=== PATIENT | female | born 1960 | race African-American/Black ===

== ENCOUNTER 2018-05-19 10:01 | Emergency (ER) | payer MEDICAID ==
[~2018-05-19] VITALS: Ht 175.3 cm; Wt 101.6 kg
[~2018-05-19 10:01] MED LIST: AMPICILLIN
[2018-05-19 10:40] LABS: CLARITY URINE CLEAR (CLEAR); COLOR URINE YELLOW (YELLOW); KETONES URINE NEGATIVE (NEGATIVE); LEUKOCYTE ESTERASE URINE TRACE (NEGATIVE); NITRITE URINE NEGATIVE (NEGATIVE); OCCULT BLOOD URINE 1+ (NEGATIVE); PROTEIN URINE NEGATIVE (NEGATIVE); UROBILINOGEN URINE 0.2 E.U./dL (0.2-1.0)
[2018-05-19] MEDS ORDERED: SODIUM CHLORIDE 0.9% 1,000 ML IV ONE (12:36)
[2018-05-19 13:29] LABS: BASOPHILS % 0.9 % (0.0-2.0); EOSINOPHILS % 0.6 % (0.0-5.0); HEMATOCRIT. 45.4 % (36.0-48.0); HEMOGLOBIN. 15.1 g/dL (12.0-16.0); LYMPHOCYTES % 21.9 % (20.0-50.0); MEAN CORPUSCULAR HEMOGLOBIN 29.2 pg (28.0-32.0); MEAN PLATELET VOLUME 9.9 fl (7.4-10.4); MONOCYTES % 3.2 % (2.0-8.0); NEUTROPHILS % 73.4 % (40.0-76.0); PLATELET 288 x1000/uL (130-400); RED BLOOD CELL COUNT 5.16 mill/uL (4.2-5.4); RED CELL DISTRIBUTION WIDTH 13.6 % (11.6-14.6)
[2018-05-19 13:31] LABS: CHLORIDE 103 mEq/L (98-107)
[2018-05-19 14:10] VITALS: BP 134/85
== END 2018-05-19 14:45 | disposition home or self-care (01) ==
LOC: ER 10:01
DX: R55 Syncope and collapse (principal); R42 Dizziness and giddiness; R53.1 Weakness; F17.210 Nicotine dependence, cigarettes, uncomplicated; F19.10 Other psychoactive substance abuse, uncomplicated
CPT/HCPCS: 36415; 80053; 81003; 85025; 93005; 96360; 96361; 99285; J7030; Z7610

== ENCOUNTER 2018-05-22 21:10 | Emergency (ER) | payer MEDICAID ==
[~2018-05-22] VITALS: Ht 177.8 cm; Wt 104.0 kg
[2018-05-23] VITALS: BP 130/75
== END 2018-05-23 00:01 | disposition home or self-care (01) ==
LOC: ER 21:57
DX: R53.1 Weakness (principal); F17.210 Nicotine dependence, cigarettes, uncomplicated; F41.0 Panic disorder [episodic paroxysmal anxiety]; F11.10 Opioid abuse, uncomplicated; Z71.6 Tobacco abuse counseling
CPT/HCPCS: 82962; 93005; 99283; 99406

== ENCOUNTER 2018-05-23 09:54 | Emergency (ER) | payer MEDICAID ==
[~2018-05-23] VITALS: Ht 167.6 cm; Wt 107.0 kg
[2018-05-23 11:00] LABS: CLARITY URINE CLEAR (CLEAR); COLOR URINE YELLOW (YELLOW); KETONES URINE NEGATIVE (NEGATIVE); LEUKOCYTE ESTERASE URINE NEGATIVE (NEGATIVE); NITRITE URINE NEGATIVE (NEGATIVE); OCCULT BLOOD URINE NEGATIVE (NEGATIVE); PH URINE 7.5 (4.5-8.0); PROTEIN URINE NEGATIVE (NEGATIVE); SPECIFIC GRAVITY URINE 1.006 (1.005-1.030); UROBILINOGEN URINE 0.2 E.U./dL (0.2-1.0)
[2018-05-23] MEDS ORDERED: SODIUM CHLORIDE 0.9% 1,000 ML IV ONE (11:14)
[2018-05-23 12:15] LABS: BASOPHILS % 0.5 % (0.0-2.0); EOSINOPHILS % 0.8 % (0.0-5.0); HEMATOCRIT. 42.7 % (36.0-48.0); HEMOGLOBIN. 14.1 g/dL (12.0-16.0); LYMPHOCYTES % 18.7 % (20.0-50.0); MEAN CORPUSCULAR HEMOGLOBIN 29.1 pg (28.0-32.0); MEAN CORPUSCULAR VOLUME 88.3 fL (81.0-99.0); MEAN PLATELET VOLUME 9.6 fl (7.4-10.4); MONOCYTES % 4.1 % (2.0-8.0); NEUTROPHILS % 75.9 % (40.0-76.0); PLATELET 282 x1000/uL (130-400); RED BLOOD CELL COUNT 4.84 mill/uL (4.2-5.4); RED CELL DISTRIBUTION WIDTH 13.5 % (11.6-14.6)
[2018-05-23 12:20] LABS: CHLORIDE 100 mEq/L (98-107)
[2018-05-23 12:27] LABS: D-DIMER < 0.19 mg/L FEU (<0.50); PARTIAL THROMBOPLASTIN TIME 26.1 sec (23.4-31.0); PROTHROMBIN TIME 10.3 sec (9.4-11.6)
[2018-05-23 12:28] LABS: ETHANOL BLOOD < 10 mg/dL
[2018-05-23 12:32] LABS: CREATINE KINASE 109 IU/L (26-192)
[2018-05-23 16:50] VITALS: BP 132/74
== END 2018-05-23 17:10 | disposition home or self-care (01) ==
LOC: ER 10:16
DX: R42 Dizziness and giddiness (principal); E86.0 Dehydration; F17.200 Nicotine dependence, unspecified, uncomplicated; F11.10 Opioid abuse, uncomplicated; R03.0 Elevated blood-pressure reading, without diagnosis of hypertension
CPT/HCPCS: 36415; 71045; 80053; 81003; 81025; 82550; 83690; 83880; 84443; 84484; 85025; 85379; 85610; 85730; 93005; 96360; 99285; G0482; J7030; Z7610

== ENCOUNTER 2018-05-28 14:30 | Emergency (ER) | payer MEDICAID ==
[~2018-05-28] VITALS: Ht 162.6 cm; Wt 114.0 kg
[2018-05-28 15:34] LABS: CLARITY URINE CLEAR (CLEAR); COLOR URINE YELLOW (YELLOW); KETONES URINE NEGATIVE (NEGATIVE); LEUKOCYTE ESTERASE URINE 1+ (NEGATIVE); NITRITE URINE NEGATIVE (NEGATIVE); OCCULT BLOOD URINE NEGATIVE (NEGATIVE); PH URINE 6.5 (4.5-8.0); PROTEIN URINE NEGATIVE (NEGATIVE); SPECIFIC GRAVITY URINE 1.016 (1.005-1.030); UROBILINOGEN URINE 0.2 E.U./dL (0.2-1.0)
[2018-05-28] MEDS ORDERED: NITROFURANTOIN 100MG M/M CAPSULE PO ONE (19:30)
[2018-05-28 19:40] VITALS: BP 155/78
== END 2018-05-28 19:42 | disposition home or self-care (01) ==
LOC: ER 14:30
DX: N30.00 Acute cystitis without hematuria (principal); R42 Dizziness and giddiness
CPT/HCPCS: 81003; 99283

== ENCOUNTER 2019-04-21 06:59 | Emergency (ER) | payer MEDICAID ==
[~2019-04-21] VITALS: Ht 175.3 cm; Wt 107.0 kg
[2019-04-21 07:37] LABS: BASOPHILS % 0.2 % (0.0-2.0); EOSINOPHILS % 4.4 % (0.0-5.0); HEMATOCRIT. 40.7 % (36.0-48.0); HEMOGLOBIN. 13.4 g/dL (12.0-16.0); LYMPHOCYTES % 33.8 % (20.0-50.0); MEAN CORPUSCULAR HEMOGLOBIN 29.1 pg (28.0-32.0); MEAN CORPUSCULAR VOLUME 88.4 fL (81.0-99.0); MEAN PLATELET VOLUME 9.3 fl (7.4-10.4); MONOCYTES % 6.7 % (2.0-8.0); NEUTROPHILS % 54.9 % (40.0-76.0); PLATELET 257 x1000/uL (130-400); RED CELL DISTRIBUTION WIDTH 14.2 % (11.6-14.6)
[2019-04-21 07:42] LABS: CHLORIDE 102 mEq/L (98-107)
[2019-04-21 09:22] VITALS: BP 109/65
== END 2019-04-21 09:25 | disposition home or self-care (01) ==
LOC: ER 07:57
DX: R07.89 Other chest pain (principal); R00.2 Palpitations; F17.200 Nicotine dependence, unspecified, uncomplicated; Z98.890 Other specified postprocedural states
CPT/HCPCS: 36415; 71045; 84484; 93005; 99284

== ENCOUNTER 2019-05-11 06:21 | Emergency (ER) | payer MEDICAID ==
[~2019-05-11] VITALS: Ht 177.8 cm; Wt 80.0 kg
[2019-05-11] MEDS ORDERED: BACITRACIN ZINC OINT UDPKT TOP ONE (07:30)
[2019-05-11 08:30] VITALS: BP 136/68
== END 2019-05-11 09:00 | disposition home or self-care (01) ==
LOC: ER 06:21
DX: S50.811A Abrasion of right forearm, initial encounter (principal); V49.40XA Driver injured in collision with unspecified motor vehicles in traffic accident, initial encounter; Y93.9 Activity, unspecified; Y92.410 Unspecified street and highway as the place of occurrence of the external cause
CPT/HCPCS: 99283

== ENCOUNTER 2019-05-18 12:53 | Emergency (ER) | payer MEDICAID ==
[~2019-05-18] VITALS: Ht 175.3 cm; Wt 110.0 kg
[2019-05-18 15:42] VITALS: BP 140/74
== END 2019-05-18 17:46 | disposition home or self-care (01) ==
LOC: ER 12:53
DX: Z48.00 Encounter for change or removal of nonsurgical wound dressing (principal)
CPT/HCPCS: 99282

== ENCOUNTER 2019-06-07 10:01 | Emergency (ER) | payer MEDICAID ==
[~2019-06-07] VITALS: Ht 172.7 cm; Wt 90.0 kg
[2019-06-07 10:25] VITALS: BP 165/83
[2019-06-07] MEDS ORDERED: MECLIZINE 25MG TABLET PO ONE (13:00)
== END 2019-06-07 14:07 | disposition home or self-care (01) ==
LOC: ER 10:01
DX: R55 Syncope and collapse (principal); R00.1 Bradycardia, unspecified
CPT/HCPCS: 82962; 93005; 99283; J8597

== ENCOUNTER 2019-06-25 17:27 | Emergency (ER) | payer MEDICAID ==
[~2019-06-25] VITALS: Ht 175.3 cm; Wt 223.0 kg
[2019-06-25] MEDS ORDERED: MECLIZINE 25MG TABLET PO ONE (20:45)
[2019-06-25 23:09] VITALS: BP 146/81
== END 2019-06-25 23:10 | disposition home or self-care (01) ==
LOC: ER 17:27
DX: R42 Dizziness and giddiness (principal); F41.9 Anxiety disorder, unspecified; F11.10 Opioid abuse, uncomplicated; F17.210 Nicotine dependence, cigarettes, uncomplicated
CPT/HCPCS: 99283; 99406; J8597